=== PATIENT | female | born 1980 | race Caucasian/White ===

== ENCOUNTER 2018-11-06 17:11 | Emergency (ER) | payer MEDICAID ==
[~2018-11-06] VITALS: Ht 162.6 cm; Wt 104.3 kg
[2018-11-06] MEDS ORDERED: ALBUTEROL2.5 MG/31 INH (17:42)
[2018-11-06] MEDS ORDERED: PREDNISONE 20 M20 MG PO (18:49)
[2018-11-06] MEDS ORDERED: PROAIR HFA8.5 GM INH (18:49)
[2018-11-06] MEDS ORDERED: IPRAT-ALBUT 0.5-3 ML INH (18:49)
[2018-11-06 19:04] VITALS: BP 120/77
== END 2018-11-06 19:04 | disposition home or self-care (01) ==
LOC: M.ERS 17:11
DX: J44.9 Chronic obstructive pulmonary disease, unspecified (principal); F17.210 Nicotine dependence, cigarettes, uncomplicated; Z88.6 Allergy status to analgesic agent; Z88.8 Allergy status to other drugs, medicaments and biological substances

== ENCOUNTER 2019-01-21 09:23 | Emergency (ER) | payer MEDICAID ==
[~2019-01-21] VITALS: Ht 162.6 cm; Wt 86.2 kg
[~2019-01-21 09:23] MED LIST: ALBUTEROL2.5 MG/31 INH; IPRAT-ALBUT 0.5-3 ML INH; PREDNISONE 20 M20 MG PO; PROAIR HFA8.5 GM INH
[2019-01-21] MEDS ORDERED: NORCO 5-325 TA1 EAC1 PO (10:12)
[2019-01-21 10:26] VITALS: BP 114/53
== END 2019-01-21 10:28 | disposition home or self-care (01) ==
LOC: M.ERS 09:23
DX: S63.8X1A Sprain of other part of right wrist and hand, initial encounter (principal); J44.9 Chronic obstructive pulmonary disease, unspecified; F17.210 Nicotine dependence, cigarettes, uncomplicated; Z88.6 Allergy status to analgesic agent; Z88.8 Allergy status to other drugs, medicaments and biological substances; W22.8XXA Striking against or struck by other objects, initial encounter; Y93.89 Activity, other specified; Y92.89 Other specified places as the place of occurrence of the external cause; Y99.8 Other external cause status